=== PATIENT | female | born 1965 | race Caucasian/White ===

== ENCOUNTER 2017-05-08 18:07 | Emergency (ER) | payer OTHER ==
[~2017-05-08] VITALS: Ht 160 cm; Wt 96.6 kg
[~2017-05-08 18:07] MED LIST: ABILIFY5 MG; ACETAMINOPHEN325 M1 PO; ALPRAZOLAM0.25 MG PO; AMBIEN10 MG PO; AMITRIPTYLINE100 MG PO; ATENOLOL50 MG PO; ATORVASTATIN CA20 MG PO; AZITHROMYCIN250 MG PO; B COMPLETE1 EACH PO; BUSPIRONE HCL5 MG PO; CHLORTHALIDONE; CIPRO500 MG PO; CYCLOBENZAPRINE10 MG PO; DEPLIN15 MG PO; DEPLIN7.5 MG PO; DIPHENHYDRAMINE25 M1 PO; DULOXETINE HCL30 MG PO; FIORICET 50-301 EACH PO; FIORICET-COD 51 EACH PO; FOLTX TABLET1 EAC1 PO; GABAPENTIN100 MG PO; GABAPENTIN300 MG PO; GERITOL COMPLE1 EACH PO; HYDROCODON-ACE1 EAC8 PO; HYDROMORPHONE HC4 MG PO; HYDROXYZINE PAM25 MG PO; IBUPROFEN600 MG PO; IBUPROFEN800 MG PO; IMITREX25 MG PO; IMITREX50 MG PO; IMODIUM A-D2 M2 PO; KEFLEX500 MG PO; LEVOTHROID137 MCG PO; LEVOTHYROXINE125 MCG PO; LIPITOR40 MG PO; LISINOPRIL10 MG PO; LORAZEPAM1 MG; LORAZEPAM1 MG PO; MAXZIDE 37.5 MG-1 EA PO; METAXALONE800 MG PO; METHOCARBAMOL500 MG PO; METHOCARBAMOL750 MG PO; MIRALAX17 GM PO; NORCO 10-325 T1 EACH PO; NORCO 7.5-3251 EACH PO; OMEPRAZOLE20 MG PO; ONDANSETRON HCL4 MG PO; ONDANSETRON HCL8 MG PO; ONDANSETRON ODT8 MG PO; ONDANSETRON ODT8 MG SL; ORPHENADRINE C100 MG PO; PERCOCET 5-3251 EACH PO; PROPRANOLOL HCL60 MG PO; PROPRANOLOL HCL80 MG PO; PROVENTIL HFA6.7 GM INH; PSEUDOEPHEDRINE60 MG PO; SUMATRIPTAN SUC50 MG PO; TESSALON PERLE100 MG PO; TOPAMAX25 MG PO; TOPAMAX50 MG PO; TOPIRAMATE50 MG PO; VANCOMYCIN HCL500 MG PO; VITAMIN D400 UNIT PO; XARELTO10 MG PO; ZITHROMAX500 MG PO; ZOFRAN ODT8 MG SL; ZOFRAN4 MG PO; ZOLOFT100 MG PO
--- NOTE | 2017-05-09 20:51 | EKG ---
[facility] [place] [facility] [address] [facility] [place], [place] [address] Signed Normal sinus rhythm Normal ECG When compared with ECG of 15-JAN-2017 11:26, No significant change was found Confirmed by TEODORA MONTAÑO MD ([id number]) on 05/09/2017 8:51:04 PM Electronically Signed By: TEODORA MONTAÑO MD 05/09/172050 PATIENT NAME: DISHA ANDERSON MED Electrocardiogram DATE OF : 65 PHYSICIAN: TEODORA MONTAÑO MD REPORT #: [id number] REPORT IS CONFIDENTIAL AND NOT TO BE RELEASED WITHOUT AUTHORIZATION
== END 2017-05-08 22:08 | disposition home or self-care (01) ==
LOC: ED 18:07
DX: S06.9X9A Unspecified intracranial injury with loss of consciousness of unspecified duration, initial encounter (principal); E03.9 Hypothyroidism, unspecified; G43.909 Migraine, unspecified, not intractable, without status migrainosus; I10 Essential (primary) hypertension; Z90.89 Acquired absence of other organs; Z96.652 Presence of left artificial knee joint; Z91.018 Allergy to other foods; Z88.2 Allergy status to sulfonamides; Z88.1 Allergy status to other antibiotic agents; Z88.4 Allergy status to anesthetic agent; Z88.8 Allergy status to other drugs, medicaments and biological substances; Z79.899 Other long term (current) drug therapy; W19.XXXA Unspecified fall, initial encounter
CPT/HCPCS: 70450; 71010; 80053; 84484; 85025; 93005; 93010; 96361; 96374; 96375; 96376; 99284; J1885; J2405; J2550; J7030

== ENCOUNTER 2017-07-25 17:02 | Emergency (ER) | payer OTHER ==
[~2017-07-25] VITALS: Ht 160 cm; Wt 83.0 kg
[2017-07-25] MEDS ORDERED: TAMIFLU75 MG PO (19:07)
--- NOTE | 2017-07-26 06:44 | EKG ---
[facility] [address] [facility] [place], [place] [address] Signed Normal sinus rhythm Normal ECG When compared with ECG of 08-MAY-2017 19:55, No significant change was found Confirmed by MAC BRADLEY MD ([id number]) on 07/26/2017 6:43:57 AM Electronically Signed By: MAC BRADLEY MD 07/26/17 0644 PATIENT NAME: DISHA ANDERSON MED Electrocardiogram DATE OF : 65 PHYSICIAN: MAC BRADLEY MD REPORT #: [id number] REPORT IS CONFIDENTIAL AND NOT TO BE RELEASED WITHOUT AUTHORIZATION
== END 2017-07-25 19:32 | disposition home or self-care (01) ==
LOC: ED 17:02
DX: J11.1 Influenza due to unidentified influenza virus with other respiratory manifestations (principal); E03.9 Hypothyroidism, unspecified; I10 Essential (primary) hypertension; F32.9 Major depressive disorder, single episode, unspecified; Z87.01 Personal history of pneumonia (recurrent); Z90.89 Acquired absence of other organs; Z91.018 Allergy to other foods; Z88.2 Allergy status to sulfonamides; Z88.1 Allergy status to other antibiotic agents; Z88.8 Allergy status to other drugs, medicaments and biological substances; Z79.899 Other long term (current) drug therapy
CPT/HCPCS: 71020; 80053; 84484; 85025; 85379; 87502; 93005; 93010; 96361; 96374; 99283; J2405; J7120

== ENCOUNTER 2017-10-02 12:44 | Emergency (ER) | payer OTHER ==
[~2017-10-02] VITALS: Ht 160 cm; Wt 83.0 kg
[~2017-10-02 12:44] MED LIST changes: +TAMIFLU75 MG PO
[2017-10-02] MEDS ORDERED: METOPROLOL SUC100 MG PO (13:03)
[2017-10-02] MEDS ORDERED: MACRODANTIN100 MG PO (13:41)
== END 2017-10-02 14:30 | disposition home or self-care (01) ==
LOC: ED 12:44
DX: N39.0 Urinary tract infection, site not specified (principal); I10 Essential (primary) hypertension; E03.9 Hypothyroidism, unspecified; F32.9 Major depressive disorder, single episode, unspecified; Z87.01 Personal history of pneumonia (recurrent); Z91.018 Allergy to other foods; Z88.2 Allergy status to sulfonamides; Z88.1 Allergy status to other antibiotic agents; Z88.4 Allergy status to anesthetic agent; Z88.8 Allergy status to other drugs, medicaments and biological substances; Z79.899 Other long term (current) drug therapy
CPT/HCPCS: 81001; 96374; 96375; 99283; J1885; J2405; J7030

== ENCOUNTER 2017-12-05 11:09 | Emergency (ER) | payer OTHER ==
[~2017-12-05] VITALS: Ht 160 cm; Wt 85.3 kg
[~2017-12-05 11:09] MED LIST changes: +MACRODANTIN100 MG PO; +METOPROLOL SUC100 MG PO
== END 2017-12-05 11:26 | disposition home or self-care (01) ==
LOC: ED 11:09
DX: R05 Cough (principal); R06.02 Shortness of breath; J02.9 Acute pharyngitis, unspecified

== ENCOUNTER 2018-01-30 06:49 | Emergency (ER) | payer OTHER ==
[~2018-01-30] VITALS: Ht 160 cm; Wt 81.7 kg
[2018-01-30] MEDS ORDERED: MELATONIN3 MG PO (07:35)
[2018-01-30] MEDS ORDERED: IBUPROFEN800 MG PO (07:37)
[2018-01-30] MEDS ORDERED: ORPHENADRINE C100 MG PO (07:39)
[2018-01-30] MEDS ORDERED: OMEPRAZOLE20 M1 PO (07:39)
== END 2018-01-30 11:25 | disposition home or self-care (01) ==
LOC: ED 06:49
DX: R40.0 Somnolence (principal); T42.8X5A Adverse effect of antiparkinsonism drugs and other central muscle-tone depressants, initial encounter; T40.605A Adverse effect of unspecified narcotics, initial encounter; S01.21XA Laceration without foreign body of nose, initial encounter; S01.411A Laceration without foreign body of right cheek and temporomandibular area, initial encounter; E03.9 Hypothyroidism, unspecified; I10 Essential (primary) hypertension; F32.9 Major depressive disorder, single episode, unspecified; Z91.018 Allergy to other foods; Z88.2 Allergy status to sulfonamides; Z88.1 Allergy status to other antibiotic agents; Z88.8 Allergy status to other drugs, medicaments and biological substances; Z79.899 Other long term (current) drug therapy; X58.XXXA Exposure to other specified factors, initial encounter
CPT/HCPCS: 36415; 80053; 99284; J7040

== ENCOUNTER 2020-04-12 15:25 | Emergency (ER) | payer OTHER ==
[~2020-04-12] VITALS: Ht 160 cm; Wt 82.5 kg
[~2020-04-12 15:25] MED LIST changes: +AMOX TR-K CLV1 EAC1 PO; +AUGMENTIN 875-1 EACH PO; +CARISOPRODOL350 MG PO; +ESTRADIOL1 MG PO; +IPRAT-ALBUT 0.5-3 ML INH; +MELATONIN3 MG PO; -NORCO 7.5-3251 EACH PO; +OMEPRAZOLE20 M1 PO; +PREDNISONE20 MG PO; +PROMETHAZINE-C473 ML PO; +VENTOLIN HFA18 GM INH; +ZOLMITRIPTAN5 MG PO
[2020-04-12] MEDS ORDERED: SUMATRIPTAN SU100 MG PO (15:42)
== END 2020-04-12 15:45 | disposition home or self-care (01) ==
LOC: ED 15:25
DX: S91.205A Unspecified open wound of left lesser toe(s) with damage to nail, initial encounter (principal); S91.105A Unspecified open wound of left lesser toe(s) without damage to nail, initial encounter; W22.8XXA Striking against or struck by other objects, initial encounter

== ENCOUNTER 2020-11-25 12:50 | Emergency (ER) | payer OTHER ==
[~2020-11-25] VITALS: Ht 160 cm; Wt 87.1 kg
[~2020-11-25 12:50] MED LIST changes: +SUMATRIPTAN SU100 MG PO
[2020-11-25] MEDS ORDERED: VENTOLIN HFA18 GM (13:14)
== END 2020-11-25 21:08 | disposition home or self-care (01) ==
LOC: ED 12:50
DX: G43.909 Migraine, unspecified, not intractable, without status migrainosus (principal); R93.0 Abnormal findings on diagnostic imaging of skull and head, not elsewhere classified; E03.9 Hypothyroidism, unspecified; I10 Essential (primary) hypertension; Z88.8 Allergy status to other drugs, medicaments and biological substances; Z88.2 Allergy status to sulfonamides; Z88.1 Allergy status to other antibiotic agents; Z91.018 Allergy to other foods; Z79.899 Other long term (current) drug therapy
CPT/HCPCS: 70450; 70496; 70498; 80053; 85025; 99284-25; J0780; J1100; J1200; J1885; J2270; J2765; J3230; J3475; J7030; Q9967

== ENCOUNTER 2021-02-26 11:11 | Emergency (ER) | payer OTHER ==
[~2021-02-26] VITALS: Ht 160 cm; Wt 82.1 kg
[~2021-02-26 11:11] MED LIST changes: +VENTOLIN HFA18 GM
[2021-02-26] MEDS ORDERED: CRUTCH1 EACH MISC (12:01)
[2021-02-26] MEDS ORDERED: HYDROCODON-ACE1 EA10 PO (12:01)
== END 2021-02-26 12:27 | disposition home or self-care (01) ==
LOC: ED 11:11
DX: S93.401A Sprain of unspecified ligament of right ankle, initial encounter (principal); X50.9XXA Other and unspecified overexertion or strenuous movements or postures, initial encounter; G43.909 Migraine, unspecified, not intractable, without status migrainosus; I10 Essential (primary) hypertension; Z88.8 Allergy status to other drugs, medicaments and biological substances; Z88.2 Allergy status to sulfonamides; Z88.1 Allergy status to other antibiotic agents; Z91.018 Allergy to other foods; Z79.899 Other long term (current) drug therapy
CPT/HCPCS: 73610; 99283-25

== ENCOUNTER 2021-09-04 12:04 | Emergency (ER) | payer OTHER ==
[~2021-09-04] VITALS: Ht 160 cm; Wt 86.2 kg
[~2021-09-04 12:04] MED LIST changes: +CRUTCH1 EACH MISC; +HYDROCODON-ACE1 EA10 PO
--- NOTE | 2021-09-05 18:37 | EKG ---
[facility] [address] [facility] [place] [address] Signed Normal sinus rhythm Normal ECG When compared with ECG of 27-JUL-2019 16:53, Nonspecific T wave abnormality now evident in Anterior leads Confirmed by ESTEPHANIA CUBA DO ([id number]) on 09/05/2021 6:37:10 PM Electronically Signed By: ESTEPHANIA CUBA DO 09/05/21 1837 PATIENT NAME: DISHA ANDERSON MED Electrocardiogram DATE OF : 65 PHYSICIAN: ESTEPHANIA CUBA DO REPORT #: [id number] REPORT IS CONFIDENTIAL AND NOT TO BE RELEASED WITHOUT AUTHORIZATION
== END 2021-09-04 16:10 | disposition home or self-care (01) ==
LOC: ED 12:04
DX: U07.1 COVID-19 (principal); E86.0 Dehydration; E03.9 Hypothyroidism, unspecified; G43.909 Migraine, unspecified, not intractable, without status migrainosus; I10 Essential (primary) hypertension; Z88.2 Allergy status to sulfonamides; Z88.1 Allergy status to other antibiotic agents; Z88.8 Allergy status to other drugs, medicaments and biological substances; Z91.018 Allergy to other foods; Z79.899 Other long term (current) drug therapy; Z79.51 Long term (current) use of inhaled steroids
CPT/HCPCS: 36415; 70450; 71045; 80053; 81001; 83605; 83735; 84484; 85025; 87040; 93005; 93010; 99285-25; C9803; U0003

== ENCOUNTER 2021-10-03 18:37 | Emergency (ER) | payer OTHER ==
[~2021-10-03] VITALS: Ht 160 cm; Wt 86.2 kg
--- NOTE | 2021-10-05 15:57 | EKG ---
[facility] [address] [facility] [place] [address] Signed Normal sinus rhythm Normal ECG When compared with ECG of 04-SEP-2021 14:16, Nonspecific T wave abnormality no longer evident in Anterior leads Confirmed by TEODORA MONTAÑO MD ([id number]) on 10/05/2021 3:57:25 PM Electronically Signed By: TEODORA MONTAÑO MD 10/05/21 1557 PATIENT NAME: JUSTINDISHA MED Electrocardiogram DATE OF : 65 PHYSICIAN: TEODORA MONTAÑO MD REPORT #: [id number] REPORT IS CONFIDENTIAL AND NOT TO BE RELEASED WITHOUT AUTHORIZATION
== END 2021-10-03 20:00 | disposition home or self-care (01) ==
LOC: ED 18:37
DX: J44.1 Chronic obstructive pulmonary disease with (acute) exacerbation (principal); E03.9 Hypothyroidism, unspecified; G43.909 Migraine, unspecified, not intractable, without status migrainosus; I10 Essential (primary) hypertension; Z91.018 Allergy to other foods; Z88.2 Allergy status to sulfonamides; Z88.1 Allergy status to other antibiotic agents; Z88.8 Allergy status to other drugs, medicaments and biological substances; Z79.899 Other long term (current) drug therapy
CPT/HCPCS: 71046; 93005; 93010; 99285-25

== ENCOUNTER 2022-05-02 23:56 | Observation (INO) | payer OTHER ==
[~2022-05-02] VITALS: Ht 160 cm; Wt 88.5 kg
[~2022-05-02 23:56] MED LIST changes: +SERTRALINE HCL200 MG PO; -ZOLOFT100 MG PO
[2022-05-03] MEDS ORDERED: LISINOPRIL5 MG PO (00:09)
--- NOTE | 2022-05-03 06:05 | NUR ---
PT ARRIVED TO CCU FROM ED VIA STRETCHER. SBA FOR TRANSFER TO BED. PT AMBULATED W/ SBA TO BR. TOLERATING IVF ORDERED. CALL LIGHT AT HAND. VSS. NO DISTRESS NOTED. RESPIRATIONS EVEN AND UNLABORED. WILL CONT TO MONITOR.
--- NOTE | 2022-05-03 07:25 | NUR ---
PT ASSESSMENT COMPLETED. PT IS A/O, AMBULATES WELL FROM BED TO BATHROOM. RATES PAIN /10. VS WNL. RESPIRATIONS EVEN AND REGULAR. CALL LIGHT WITHIN REACH.
--- NOTE | 2022-05-03 08:15 | NUR ---
TO PT ROOM FOR PAIN MED ADMINISTRATION. RATES PAIN IN ABDOMEN 01/03.
[2022-05-03] MEDS ORDERED: HYDROCODON-ACE1 EAC8 PO (10:09)
[2022-05-03] MEDS ORDERED: GABAPENTIN300 MG PO (10:13)
--- NOTE | 2022-05-03 10:29 | NUR ---
ROUNDED ON PT. PT DENIES NAUSEA ATT. ATE 100% JELLO. PT IS A/O, RESPIRATIONS EVEN AND REGULAR. AMBULATING WELL TO RESTROOM. CALL LIGHT WITHIN REACH.
--- NOTE | 2022-05-03 10:43 | NUR ---
PT UP TO BATHROOM. STATES SHE FELT A "SQUIRT" DURING BOWEL MOVEMENT. BRIGHT RED BLOOD NOTED WITH SCANT AMOUNT OF BROWN STOOL. SAMPLE COLLECTED. PT IS ASYMPTOMATIC ATT. AMBULATED WELL FROM BATHROOM TO BED. IV FLUIDS RUNNING.
--- NOTE | 2022-05-03 11:09 | NUR ---
PT RATES PAIN 7/10. PAIN MEDICATION ADMINISTERED. VS WNL. IV FLUIDS RUNNING. CALL LIGHT WITHIN REACH.
[2022-05-03] MEDS ORDERED: MOTRIN IB200 MG PO (11:47)
--- NOTE | 2022-05-03 11:49 | NUR ---
MED REC COMPLETE
--- NOTE | 2022-05-03 12:00 | NUR ---
PT ASSESSMENT COMPLETED. PT RATES PAIN 7/10. PAIN MEDICATION ADMINISTERED. VS WNL. DOES NOT WANT TO TRY LUNCH ATT.
--- NOTE | 2022-05-03 13:11 | NUR ---
ROUNDED ON PT. PT STATES PAIN HAS IMPROVED SOME. RATES PAIN 6/10. EARLIER REPORTED HAVING A MIGRAINE. STATES SHE DRINKS AROUND 8 DIET PEPSI'S PER DAY. PT GIVEN DIET PEPSI. IV FLUIDS RUNNING. CALL LIGHT WITHIN REACH.
--- NOTE | 2022-05-03 15:00 | NUR ---
ROUNDED ON PT. PT REQUESTING PAIN MEDICATION FOR 8/10 HEADACHE AND 7/10 ABDOMINAL PAIN. PAIN MEDICATION ADMINISTERED INCREASED FROM 2MG Q2HR TO 4MG Q2HR PER ORDER. PT STATES DIET PEPSI HAD NO EFFECT ON HEADACHE. PT IS A/O, RESPIRATIONS EVEN AND REGULAR. USING CALL LIGHT APROPRIATLY, ABLE TO MAKE NEEDS KNOWN.
--- NOTE | 2022-05-03 16:00 | NUR ---
PT ASSESSMENT COMPLETED. PT UP TO RESTROOM. VOIDING WELL. HAD SECOND EPISODE OF SMALL AMOUNT OF RAJESH RED BLOOD WITH SCANT AMOUNT OF STOOL. PT DENIES DIZZINESS, OR FEELING FAINT. CONTINUES TO HAVE INCREASED CRAMPING WITH EACH BOWEL MOVEMENT. RATES HEADACHE 8/10, RATES ABDOMINAL PAIN 7/10. IV FLUIDS RUNNING. CALL LIGHT WITHIN REACH.
--- NOTE | 2022-05-03 17:52 | NUR ---
PT UP TO BATHROOM. VOIDED 900ML. X1 SMALL AMOUNT OF RAJESH BLOOD WITH SCANT AMOUNT OF STOOL. PT HAS FINISHED ONE BOTTLE OF BOWEL PREP. AMBULATING WELL. CALL LIGHT WITHIN REACH.
--- NOTE | 2022-05-03 20:00 | NUR ---
REPORT RECEIVED FROM DAY SHIFT RN. PT IS SITTING UP IN BED W/ HER DAUGHTER AT BEDSIDE. UP TO BR W/ SBA. STOOL SAMPLE COLLECTED AND SENT TO LAB. TOLERATING IVF ORDERED. CALL LIGHT AT HAND. WILL CONT TO MONITOR.
--- NOTE | 2022-05-03 22:09 | NUR ---
PT UP TO BR W/ SBA. PRN ADMINISTERED FOR ABD PAIN. VSS. NO APPARENT DISTRESS NOTED. VERBALIZES NEEDS APPROPRIATELY. CALL LIGHT AT HAND. WILL CONT TO MONITOR.
--- NOTE | 2022-05-04 01:24 | NUR ---
PT REPORTS 7/10 ABD PAIN. PRN PAIN MED PROVIDED. NO OTHER NEEDS AT THIS TIME. FAMILY IN ROOM. CALL LIGHT IN REACH.
--- NOTE | 2022-05-04 04:20 | NUR ---
PT UP TO BR- REQUESTED PRN PAIN MEDICATION FOR 8/10 ABD PAIN UPON RETURNING TO BED. PRN ADMINISTERED ORDERED. VSS. NO DISTRESS NOTED. VERBALIZES NEEDS. CALL LIGHT WITHIN REACH. WILL CONT TO MONITOR.
--- NOTE | 2022-05-04 06:32 | NUR ---
PT IS RESTING IN BED W/ HER EYES CLOSED AND APPEARS COMFORTABLE. CALL LIGHT AT HAND. VSS. WILL CONT TO MONITOR.
--- NOTE | 2022-05-04 07:50 | NUR ---
PT ASSESSMENT AND MEDICATION ADMINISTRATION COMPLETED. PT C/O MIGRAINE RATING PAIN 8/10, AND ABDOMINAL PAIN 7/10. PT GIVEN IMITREX WITH SIP OF WATER, AND MORPHINE. SUPPOSITORY HELD THIS A.M. DUE TO GOOD BOWEL OUTPUT OVERNIGHT. PT IS A/O, RESPIRATIONS EVEN AND REGULAR. HR 10O. CALL LIGHT WITHIN REACH. FAMILY AT BEDSIDE.
--- NOTE | 2022-05-04 08:40 | CONS ---
[facility] [address] [place], [place] [address] Signed DATE OF CONSULTATION: 05/03/2022 CHIEF COMPLAINT: Diffuse abdominal pain. HISTORY OF PRESENT ILLNESS: Disha is a 56-year-old obese female, who has a long history of chronic diarrhea. I helped her with her gallbladder surgery back in 2011. I helped her with a colonoscopy in 2017 with diverticulosis and an angulated rectosigmoid junction. Yesterday, she was eating at restaurant and had eggs over easy with [place] toast. She was having some diffuse crampy abdominal pain, which she attributed to her usual chronic diarrhea. However, the pain can persist and continued to escalate more than her usual. She finally decided to come to the emergency room for evaluation. She has mild diffuse abdominal pain. She had some diarrhea following the pain. White count was normal and lactic acid was normal along with her electrolytes. COVID was negative. Urinalysis negative. Liver function tests are negative. Her albumin is good. CT scan of abdomen and pelvis showed some mild chronic diffuse appearing inflammation of the colon with a little wall thickening, seemed to be worse distally. Consequently, she has been admitted to the Internal Medicine service and I have been asked to see her as a general surgeon on-call. She was given IV fluids along with some potassium and Zosyn last night. Overall, she feels a little better this morning, but not completely resolved. PAST MEDICAL HISTORY: Hypothyroidism, migraine headaches, hypertension, depression, lumbago, osteoarthritis of her knees, COPD, pneumonia, acute kidney injury, brain aneurysm, chronic diarrhea, diverticulosis, and obesity. PAST SURGICAL HISTORY: Includes bilateral knee surgeries, right shoulder surgery, tonsils, laparoscopic cholecystectomy [place] [address] Coon, , a right total knee replacement, a left total knee replacement, TMJ and a colonoscopy in [address] Coon showing diverticulosis along with the angulated rectosigmoid junction. SOCIAL HISTORY: She does not smoke or drink. She prefers the [facility]. Romeo is her at [phone]. FAMILY HISTORY: Maternal aunt, uncle and cousins who had colon cancer. Step dad of rectal cancer. REVIEW OF SYSTEMS: She had 10 systems reviewed and there were no new findings other than the GI complaints. Electronically Signed By: TWILA COON MD 05/04/22 0840 PATIENT NAME: DISHA ANDERSON CONSULTATION DATE OF : 65 REPORT #: [id number] PHYSICIAN: TWILA COON MD PCP: OTHER PCP REPORT IS CONFIDENTIAL AND NOT TO BE RELEASED WITHOUT AUTHORIZATION [facility] [address] [place], [place] [address] Signed ALLERGIES: Metronidazole, coconut soften, lidocaine. MEDICATIONS: [place], amitriptyline, sertraline, levothyroxine, atorvastatin, gabapentin, Zofran, metoprolol, sumatriptan, and lisinopril. PHYSICAL EXAMINATION: VITAL SIGNS: Her blood pressures in the 80s in the emergency room after taking her evening blood pressure medications. They are now 119/52, heart rate 73, respiratory rate 14, temperature is 97.9, she is 97% on room air. She is 5 feet 3 inches, 88 kg. GENERAL: Disha is a 56-year-old female lying supine in her hospital bed, in the ICU. Our nurses with this. She is alert, awake, and interactive. Overall, she is a good historian. She does not appear systemically ill or toxic. LUNGS: Clear to auscultation bilaterally. HEART: Regular rate and rhythm without murmurs. ABDOMEN: Obese, but soft with mild diffuse tenderness mostly in the central and upper abdomen. LABORATORY DATA: Her white blood count is 10.1, hemoglobin 13, and neutrophils 67. Potassium is 3.2, BUN 15, creatinine 1.13, glucose 130, lactic acid 1.1. COVID negative. Urinalysis negative. Liver function tests are negative. Albumin 3.8. RADIOGRAPHIC STUDIES: CT scan of abdomen and pelvis shows mild chronic diffuse inflammation wall thickening of her colon, it seems to be worse distally. No other major findings. ASSESSMENT/PLAN: Disha appears to have mild pancolitis, possibly related to this food that she ate last evening at a restaurant up in [place], [place]. If indeed this some food poisoning, it should resolve in 24-48 hours. In the meantime, we are going to keep her on conservative treatment and allow her some clear liquids. I have discussed this with Disha, her nurse and Dr. Ortega. Twila Coon MD ALB/MODL /[id number] Electronically Signed By: TWILA COON MD 05/04/22 0840 PATIENT NAME: DISHA ANDERSON CONSULTATION DATE OF : 65 REPORT #: [id number] PHYSICIAN: TWILA COON MD PCP: OTHER PCP REPORT IS CONFIDENTIAL AND NOT TO BE RELEASED WITHOUT AUTHORIZATION [facility] [address] [facility] [place], [place] [address] Signed Copies: ~ Electronically Signed By: TWILA COON MD 05/04/22 0840 PATIENT NAME: DISHA ANDERSON CONSULTATION DATE OF : 65 REPORT #: [id number] PHYSICIAN: TWILA COON MD PCP: OTHER PCP REPORT IS CONFIDENTIAL AND NOT TO BE RELEASED WITHOUT AUTHORIZATION
--- NOTE | 2022-05-04 09:14 | NUR ---
ROUNDED ON PT. PT UP OOB INDEPENDENTLY. HR AT REST NOTED IN 90'S-100. WITH ACTIVITY HR 130'S. PT IS ASYMPTOMATIC WITH ACTIVITY. HOWEVER, REPORTS INCREASED CRAMPING WHEN UP TO BATHROOM. VOIDING WELL, NO BOWEL MOVEMENT SINCE START OF SHIFT.
--- NOTE | 2022-05-04 10:22 | NUR ---
PT OFF UNIT TO SURGERY. TRANSFERRED VIA HOSPITAL BED WITH SURGICAL NURSE.
--- NOTE | 2022-05-04 11:03 | NUR ---
PT RETURNED FROM SURGERY. IV FLUIDS RUNNING. BP 110/70. PT IS A/O, RESPIRATIONS EVEN AND REGULAR.
--- NOTE | 2022-05-04 12:47 | NUR ---
ROUNDED ON PT. PT A/O, IV FLUIDS RUNNING. RATES ABD PAIN 8/10. CONTINUES TO HAVE SMALL AMOUNT OF INCONTINENT LOOSE STOOL POST BOWEL PREP. NO RAJESH BLOOD NOTED. IV FLUIDS RUNNING. CALL LIGHT WITHIN REACH. FAMILY AT BEDSIDE.
--- NOTE | 2022-05-04 14:47 | NUR ---
PT ASSESSMENT COMPLETED. ENCOURAGED PT TO AMBULATE AND PARTICIPATE IN DAILY CARE. PROVIDED WITH [place]. PT IS A/O, IV FLUIDS RUNNING. CONTINUES TO COMPLAIN OF ABDOMINAL PAIN 03/05.
--- NOTE | 2022-05-04 16:55 | NUR ---
ROUNDED ON PT. PT IS A/O, RESPIRATIONS EVEN AND REGULAR. DINNER TRAY OF CLEAR LIQUIDS BROUGHT TO PT. IV FLUIDS RUNNING. PT HAS NO COMPLAINTS ATT. CALL LIGHT WITHIN REACH.
--- NOTE | 2022-05-04 17:26 | EKG ---
[facility] [address] [facility] [place] [address] Signed Normal sinus rhythm Normal ECG When compared with ECG of 03-OCT-2021 18:54, Nonspecific T wave abnormality now evident in Inferior leads Confirmed by Hang Lujan MD () on 05/04/2022 5:26:43 PM Electronically Signed By: HANG LUJAN MD 05/04/22 1726 PATIENT NAME: DISHA ANDERSON MED Electrocardiogram DATE OF : 65 PHYSICIAN: HANG LUJAN MD REPORT #: [id number] REPORT IS CONFIDENTIAL AND NOT TO BE RELEASED WITHOUT AUTHORIZATION
--- NOTE | 2022-05-04 17:58 | NUR ---
ROUNDED ON PT. PT IS A/O, RESPIRATIONS EVEN AND REGULAR. RATES ABDOMINAL PAIN 04/05. MORPHINE 4MG IV ADMINISTERED. IV FLUIDS RUNNING. PT DENIES ANY OTHER COMPLAINTS OR NEEDS AT THIS TIME.
--- NOTE | 2022-05-04 21:55 | NUR ---
REPORT RECEIVED FROM DAY SHIFT RN. PT IS AWAKE IN BED AND APPEARS UNCOMFORTABLE. ICE PACK GIVEN FOR LOERA; PRN MORPHINE ADMINISTERED. CALL LIGHT AT HAND. PT VERBALIZES NEEDS APPROPRIATELY. WILL CONT TO MONITOR.
--- NOTE | 2022-05-04 23:47 | NUR ---
PT W/ 03/05 LOERA AND ABD PAIN- PRNs ADMINISTERED ORDERED. VSS. CALL LIGHT AT HAND. WILL CONT TO MONITOR.
--- NOTE | 2022-05-05 03:00 | NUR ---
PT UP TO BR W/ SBA. TOLERATING IVF. CONT W/ ABD PAIN AND HEADACHE- PRNs ADMINISTERED AND HELPFUL. REPOSITIONING IN BED INDEPENDENTLY. VSS. NO DISTRESS NOTED. RESPIRATIONS EVEN AND UNLABORED. CALL LIGHT AT HAND. WILL CONT TO MONITOR.
--- NOTE | 2022-05-05 05:15 | NUR ---
PRN PAIN MEDICATION ADMINISTERED. TOLERATING IVF. UP TO BR W/ SBA. VSS. NO DISTRESS NOTED. CALL LIGHT AT HAND. WILL CONT TO MONITOR.
--- NOTE | 2022-05-05 06:34 | OR ---
[facility] [address] [place], [place] [address] Signed DATE OF OPERATION: 05/04/2022 SURGEON: Twila Coon MD PREOPERATIVE DIAGNOSES: 1. Pancolitis. 2. Anemia with hemoglobin of 11.2 and mean cell volume of 82. 3. Chronic diarrhea. 4. Diverticulosis. POSTOPERATIVE DIAGNOSES: PROCEDURE: Colonoscopy with cold biopsies of the cecum, right colon, transverse colon, left colon, sigmoid colon x3 and rectum. ESTIMATED BLOOD LOSS: None. FINDINGS: Lilly clearly had colitis in her sigmoid colon. The rest of the colon seemed to be unremarkable from a visible standpoint. INDICATIONS: Lilly is a 56-year-old obese female with a history of COPD and chronic diarrhea and diverticulosis. I helped her with a colonoscopy in 2017. We had noted her diverticulosis at that time. Her family was out to eat last night at a restaurant, she got sick an hour or two afterwards. This morning, the said he actually got diarrhea as well. She came in with generalized abdominal pain. The exam showed generalized tenderness with a white count of 10.1. Lactic acid was unremarkable. CT scan showed mild chronic diffuse inflammation wall thickening throughout the entire colon. It seemed to be worse in the distal colon. She had been admitted to the Internal Medicine service and hydrated. She was given one dose of Zosyn in the emergency room. I have been asked to see her as a general surgeon on-call. I met with Lilly yesterday and this morning. There seems to be a just a little bit of blood associated with the diarrhea. We went ahead and gave her bowel prep yesterday afternoon in preparation for a colonoscopy this morning. Lilly thought her abdominal pain was about the same, but it is definitely worse in the left lower quadrant over top of the sigmoid colon. She thought also in the right upper quadrant as well. White count Electronically Signed By: TWILA COON MD 05/05/22 0634 PATIENT NAME: LILLY ANDERSON OPERATIVE REPORT DATE OF : 65 REPORT #: [id number] PHYSICIAN: TWILA COON MD PCP: OTHER PCP REPORT IS CONFIDENTIAL AND NOT TO BE RELEASED WITHOUT AUTHORIZATION [facility] [address] [place], [place] [address] Signed actually went down to 8. She did tolerate the bowel prep just fine. I reviewed colonoscopy with her. There is risk including, but not limited to gas bloating, crampy abdominal pain, bleeding, perforation requiring surgery, and missed diagnosis. We also discussed the need for monitored anesthesia care given her acute setting. She had expressed understanding and wished to proceed. PROCEDURE NOTE: Lilly was taken into our endoscopy suite and placed in the left lateral decubitus position. She was maintained on propofol infusion per our nurse aniline press worker. A digital rectal exam was performed and this was unremarkable. She had good sphincter tone and no external hemorrhoids. The adult colonoscope was introduced and advanced under direct visualization of the camera. Her rectum appeared quite unremarkable. She clearly has some edema and inflammatory changes in the sigmoid colon. She had some streaky areas of inflammatory changes. Once we got in her left colon, it opened up nicely and the mucosa appeared unremarkable. The scope passed up to the hepatic flexure. We then used some abdominal compression in order to get the scope down into the cecum itself. Overall, her prep was okay. She had a few areas of liquid particulate stool matter. Most of that was irrigated and suctioned out. We could easily see her appendiceal orifice and the ileocecal valve. We had taken pictures throughout for photodocumentation. The scope was then slowly withdrawn. We took random cold biopsies as described above. Again, the only visible area of inflammatory change is in the sigmoid colon. Once in the rectum, the scope had been retroflexed and there was no additional pathology noted above the anal canal. After this, the gas was suctioned out and colonoscope removed. Lilly tolerated the procedure quite well. RECOMMENDATIONS: Lilly will be returned to her ICU room. She will be continued on IV fluids and clear liquid diet. I will discuss this with our hospitalist service as well. This certainly could be a viral colitis, but it could be associated with the food as well. Twila Coon MD ALB/MODL /[id number] cc: Twila Coon MD Electronically Signed By: TWILA COON MD 05/05/22 0634 PATIENT NAME: LILLY ANDERSON OPERATIVE REPORT DATE OF : 65 REPORT #: [id number] PHYSICIAN: TWILA COON MD PCP: OTHER PCP REPORT IS CONFIDENTIAL AND NOT TO BE RELEASED WITHOUT AUTHORIZATION [address] [address] Signed Copies: TWILA COON MD ~ Electronically Signed By: TWILA COON MD 05/05/22 0634 PATIENT NAME: LILLY ANDERSON OPERATIVE REPORT DATE OF : 65 REPORT #: [id number] PHYSICIAN: TWILA COON MD PCP: OTHER PCP REPORT IS CONFIDENTIAL AND NOT TO BE RELEASED WITHOUT AUTHORIZATION
--- NOTE | 2022-05-05 08:00 | NUR ---
FOUR SLIDE MACHINE SETTER AND SCHEDULED MEDICATIONS GIVEN. PATIENT IS AWAKE, ALERT, ORIENTED, ABLE TO FOLLOW COMMANDS AND CONVERSE APPROPRIATELY. PATIENT STATED HER ABDOMINAL PAIN IS STILL PRESENT, PRN PO MEDICATIONS GIVEN INSTEAD OF IV. PATIENT PROMPTED TO SIT AT EDGE OF BED FOR BREAKFAST AND WAS EDUCATED THAT SHE NEEDED TO AMBULATE THROUGHOUT THE DAY IN PREPARATION FOR POSSIBLE DISCHARGE. PATIENT DIET INCREASED TO SOFT AND AND THUS FAR TOLERATED WELL. PATIENT DENIES ANY FURTHER NEEDS. PERSONAL ITEMS AND CALL LIGHT WITHIN REACH.
--- NOTE | 2022-05-05 10:00 | NUR ---
PATIENT CURRENTLY RESTING WITH EYES CLOSED, EQUAL CHEST RISE AND FALL. PERSONAL ITEMS AND CALL LIGHT WITHIN REACH.
--- NOTE | 2022-05-05 12:00 | NUR ---
PATIENT UP TO BEDSIDE CHAIR FOR LUNCH WITHOUT DIFFICULTY. PATIENT STATED HER HEADACHE WAS BETTER, IT WAS NO LONGER A MIGRAINE. PAIENTS WANTS TO WAIT TO TAKE PAIN MEDS WHEN THEY ARE DUE NEXT. PATIENT DENIES ANY FURTHER NEEDS AT THIS TIME. PATIENT ENCOURAGED TO AMBULATE MORE IN ROOM AND IN HALLWAY. PERSONAL ITEMS AND CALL LIGHT WITHIN REACH.
--- NOTE | 2022-05-05 12:19 | NUR ---
VITALS AND I&OS CHARTED. PATIENT HAS USED WASHCLOTHS PROVIDED IN BATHROOM FOR SELF WASHING. PATIENT IS SITTING UP IN CHAIR, CALL LIGHT IN EASY REACH
--- NOTE | 2022-05-05 14:03 | NUR ---
Patient currently laying in bed resting comfortably. Patient denies needs at this time. [place] given previously to help with headache and abdominal pain. Personal items and call light within reach.
--- NOTE | 2022-05-05 15:52 | NUR ---
DISCHARGE INSTRUCTIONS REVIEWED WITH PATIENT. IV REMOVED AND EDUCATION GIVEN. ALL QUESTIONS ANSWERED. NO PRESCRIPTIONS AT THIS TIME. PHARMACY REVIEWED HOME MEDICATIONS. VS TAKEN. PATIENT TO LEAVE VIA WHEELCHAIR THEN PRIVATE VEHICLE HOME. NO DISTRESS NOTED AT TIME OF REVIEW AND ALL QUESTIONS ANSWERED.
--- NOTE | 2022-05-06 13:08 | NUR ---
CONTACTED PATIENT TO REPORT A POSITIVE c. dIFF PCR RESULT. PATIENT REPORTED HAVING NO DIARRHEA SINCE HER DISCHARGE AND SHE REPORTED THAT SHE HAD NOT TAKEN ANY ANTIBIOTICS PRIOR TO HER SYMPTOMS OF DIARRHEA THAT BROUGHT HER TO VISIT THE ED. SHE HAS A FOLLOW-UP APPOINTMENT ON 05-12-22 WITH [facility].
--- NOTE | 2022-05-12 18:51 | PATH ---
[facility] [address] [place], [place] [address] Signed SPECIMEN(S): A CECUM BIOPSY SPECIMEN(S): B RIGHT COLON BIOPSY SPECIMEN(S): C TRANSVERSE COLON BIOPSY SPECIMEN(S): D LEFT COLON BIOPSY SPECIMEN(S): E SIGMOID COLON BIOPSY SPECIMEN(S): F RECTAL BIOPSY SPECIMEN SOURCE: A. CECUM BIOPSY B. RIGHT COLON BIOPSY C. TRANSVERSE COLON BIOPSY D. LEFT COLON BIOPSY E. SIGMOID COLON BIOPSY F. RECTAL BIOPSY CLINICAL HISTORY: Abdominal pain; mild pancolitis. Postop diagnosis: sigmoid colitis FINAL PATHOLOGIC DIAGNOSIS: A. Colon, cecum, biopsy: - Consistent with acute self-limited and/or infectious colitis. B. Colon, right, biopsy: - Focal active colitis. C. Colon, transverse, biopsy: - Focal active colitis. D. Colon, left, biopsy: - Consistent with acute self-limited and/or infectious colitis. E. Colon, sigmoid, biopsy: - Ischemic colitis. F. Rectum, biopsy: - Portions of unremarkable rectal mucosa, with features suggestive of prep effect. COMMENT: Regarding specimen A, the colon biopsies contain a neutrophilic infiltrate. The infiltrate involves both glands and stroma. The pattern is that of an acute self-limited or infectious colitis. There is no good evidence of chronic inflammatory bowel disease. There is no evidence of a neoplastic lesion. Regarding specimens B and C, the biopsies from the colon show the presence of a focal active colitis. The differential diagnosis of focal active colitis PATIENT NAME: JUSTINDISHADIANE JOVEL PATHOLOGY DATE OF : 65 REPORT #: [id number] PHYSICIAN: MEGHA JI PCP: OTHER PCP REPORT IS CONFIDENTIAL AND NOT TO BE RELEASED WITHOUT AUTHORIZATION [facility] [address], [place] [address] Signed includes bowel preparation effect, trauma/prolapse, infection, drug or ischemic injury, IBD, areas near diverticula or stasis. Regarding specimen D, the colon biopsies contain a neutrophilic infiltrate in the stroma with evidence of cryptitis. The infiltrate involves both glands and stroma. The pattern is that of an acute self-limited or infectious colitis. There is no good evidence of chronic inflammatory bowel disease. There is no evidence of a neoplastic lesion. Regarding specimen E, the ischemia may result from a compromise to the mucosal blood flow or vasculitis. It also complicates some infections (including CMV, Clostridium difficile, and enterohemorrhagic E. coli, and drugs that can cause ischemic-type damage (e.g., vasopressors, oral contraceptives and NSAIDs). No viral inclusions are seen. No pseudomembrane formation is identified. There is no evidence of dysplasia or malignancy. Regarding specimen F, the rectal biopsy shows fragments of architecturally normal rectal mucosa. There is mild mucosal hemorrhage and congestion present. This is likely secondary to the bowel prep. There is no evidence of acute or chronic inflammation. There is no evidence of microscopic colitis, polyps, or neoplasms. No abnormal organisms are seen. KAYLEIGHK:alina:[id number] MICROSCOPIC EXAMINATION: Histologic sections of all submitted blocks are examined by light microscopy. These findings, together with the gross examination, support the pathologic diagnosis. GROSS DESCRIPTION: A. The specimen, labeled "KM #1," is received in formalin and consists of one murphy soft tissue fragment that measures 0.2 cm in greatest dimension. The specimen is entirely submitted in cassette (A1). B. The specimen, labeled "KM #2," is received in formalin and consists of one murphy soft tissue fragment that measures 0.2 cm in greatest dimension. The specimen is entirely submitted in cassette (B1). C. The specimen, labeled "KM #3," is received in formalin and consists of one murphy soft tissue fragment that measures 0.2 cm in greatest dimension. The specimen is entirely submitted in cassette (C1). D. The specimen, labeled "KM #4," is received in formalin and consists of one murphy soft tissue fragment that measures 0.2 cm in greatest dimension. The specimen is entirely submitted in cassette (D1). PATIENT NAME: DISHA ANDERSON PATHOLOGY DATE OF : 65 REPORT #: [id number] PHYSICIAN: MEGHA JI PCP: OTHER PCP REPORT IS CONFIDENTIAL AND NOT TO BE RELEASED WITHOUT AUTHORIZATION [facility] [address] [place] [id number] Signed E. The specimen, labeled "KM #5," is received in formalin and consists of three murphy soft tissue fragments that measure 0.2 cm in greatest dimension. The specimen is entirely submitted in cassette (E1). F. The specimen, labeled "KM #6," is received in formalin and consists of one murphy soft tissue fragment that measures 0.2 cm in greatest dimension. The specimen is entirely submitted in cassette (F1). KV (under the direct supervision of a pathologist) The Gross Description was prepared using a voice recognition system. The report was reviewed for accuracy; however, sound-alike word errors, addition and/or deletions may occur. If there is any question about this report, please contact Client Services. PERFORMING LABORATORY: The technical component was performed by [facility], [address] [place] [id number] (CLIA# [id number]). The professional interpretation was performed by [facility], [facility], [facility] [place] [address] (CLIA#: [id number]). Diagnostician: Gianluca Jiang MD Pathologist Electronically Signed 05/12/2022 Copies: ~ PATIENT NAME: DISHA ANDERSON PATHOLOGY DATE OF : 65 REPORT #: [id number] PHYSICIAN: MEGHA JI PCP: OTHER PCP REPORT IS CONFIDENTIAL AND NOT TO BE RELEASED WITHOUT AUTHORIZATION
== END 2022-05-05 16:15 | disposition home or self-care (01) ==
LOC: ED 23:56 → CCU 23:58
PROVIDERS: Colon & Rectal Surgery; ADMIT Family Medicine; ATTEND Family Medicine
PROC: 0DBL8ZX Excision of Transverse Colon, Via Natural or Artificial Opening Endoscopic, Diagnostic (ICD-10-PCS; 2022-05-04)
PROC: 0DBN8ZX Excision of Sigmoid Colon, Via Natural or Artificial Opening Endoscopic, Diagnostic (ICD-10-PCS; 2022-05-04)
PROC: 0DBP8ZX Excision of Rectum, Via Natural or Artificial Opening Endoscopic, Diagnostic (ICD-10-PCS; 2022-05-04)
PROC: 0DBM8ZX Excision of Descending Colon, Via Natural or Artificial Opening Endoscopic, Diagnostic (ICD-10-PCS; 2022-05-04)
PROC: 0DBH8ZX Excision of Cecum, Via Natural or Artificial Opening Endoscopic, Diagnostic (ICD-10-PCS; 2022-05-04)
PROC: 0DBK8ZX Excision of Ascending Colon, Via Natural or Artificial Opening Endoscopic, Diagnostic (ICD-10-PCS; principal; 2022-05-04 10:11)
DX: K55.9 Vascular disorder of intestine, unspecified (principal); D64.9 Anemia, unspecified; I10 Essential (primary) hypertension; G43.909 Migraine, unspecified, not intractable, without status migrainosus; J44.9 Chronic obstructive pulmonary disease, unspecified; N17.9 Acute kidney failure, unspecified; G89.29 Other chronic pain; M54.9 Dorsalgia, unspecified; N83.202 Unspecified ovarian cyst, left side; N83.201 Unspecified ovarian cyst, right side; E66.9 Obesity, unspecified; E03.9 Hypothyroidism, unspecified; E87.6 Hypokalemia; Z96.653 Presence of artificial knee joint, bilateral; Z88.2 Allergy status to sulfonamides; Z88.1 Allergy status to other antibiotic agents; Z20.822 Contact with and (suspected) exposure to COVID-19; Z90.49 Acquired absence of other specified parts of digestive tract
CPT/HCPCS: 36415; 74177; 80048; 80053; 80074; 81001; 83605; 83690; 83735; 84100; 84484; 85025; 87040; 87045; 87177; 87493; 87502; 88305; 93005; 93010; 96361; 96375; 96376; 99285-25; A9270; C9803; G0378; J0690; J1170; J1885; J2270; J2405; J2543; J2704; J7030; J7121; Q9967; U0003

== ENCOUNTER 2022-07-10 11:22 | Emergency (ER) | payer OTHER ==
[~2022-07-10] VITALS: Ht 160 cm; Wt 88.8 kg
[~2022-07-10 11:22] MED LIST changes: +LISINOPRIL5 MG PO; +MOTRIN IB200 MG PO
== END 2022-07-10 16:15 | disposition left against medical advice (07) ==
LOC: ED 11:22
DX: Z53.21 Procedure and treatment not carried out due to patient leaving prior to being seen by health care provider (principal)
CPT/HCPCS: 87502; U0003

== ENCOUNTER 2022-11-23 17:54 | Emergency (ER) | payer OTHER ==
[~2022-11-23] VITALS: Ht 160 cm; Wt 83.8 kg
[2022-11-23] MEDS ORDERED: FEROSUL325 MG PO (18:14)
[2022-11-23] MEDS ORDERED: ZOLMITRIPTAN5 MG PO (18:14)
[2022-11-23 21:57] VITALS: BP 138/85
== END 2022-11-23 21:57 | disposition home or self-care (01) ==
LOC: ED 17:54
DX: G43.909 Migraine, unspecified, not intractable, without status migrainosus (principal); J44.9 Chronic obstructive pulmonary disease, unspecified; Z88.2 Allergy status to sulfonamides; Z88.1 Allergy status to other antibiotic agents; Z88.8 Allergy status to other drugs, medicaments and biological substances; Z79.890 Hormone replacement therapy; Z79.899 Other long term (current) drug therapy
CPT/HCPCS: 36415; 70450; 70496; 80053; 85025; J0780; J1200; J1790; J1885; J2405; J7030; Q9967

== ENCOUNTER 2025-05-02 10:18 | Emergency (ER) | payer OTHER ==
[~2025-05-02] VITALS: Ht 160 cm; Wt 82.0 kg
[~2025-05-02 10:18] MED LIST changes: +FEROSUL325 MG PO
[2025-05-02] MEDS ORDERED: OMEPRAZOLE20 MG PO (10:56)
[2025-05-02] MEDS ORDERED: AMLODIPINE BESYL5 MG PO (10:57)
[2025-05-02] MEDS ORDERED: VAZALORE81 MG PO (10:57)
[2025-05-02] MEDS ORDERED: AJOVY AUTO225 MG/1.5 SQ (10:57)
[2025-05-02] MEDS ORDERED: ONDANSETRON 4 MG TAB ODT SL ONE (11:00)
[2025-05-02] MEDS ORDERED: OXYCODONE/APAP 5/325 TAB PO ONE (11:00)
[2025-05-02 12:00] VITALS: BP 118/84
[2025-05-02] MEDS ORDERED: OXYCODONE HCL 5 MG TAB PO ONE (13:15)
== END 2025-05-02 13:40 | disposition home or self-care (01) ==
LOC: ED 10:18
DX: M25.552 Pain in left hip (principal); I10 Essential (primary) hypertension; J44.9 Chronic obstructive pulmonary disease, unspecified; E03.9 Hypothyroidism, unspecified; Z88.2 Allergy status to sulfonamides; Z88.1 Allergy status to other antibiotic agents; Z88.4 Allergy status to anesthetic agent; Z91.018 Allergy to other foods; Z88.8 Allergy status to other drugs, medicaments and biological substances; Z79.82 Long term (current) use of aspirin; Z79.890 Hormone replacement therapy; Z79.899 Other long term (current) drug therapy
CPT/HCPCS: 73502; 99283; A9270